=== PATIENT | male | born 1960 | race Caucasian/White ===

== ENCOUNTER 2018-01-25 19:12 | Emergency (ER) | payer OTHER ==
[~2018-01-25] VITALS: Ht 195.6 cm; Wt 141.4 kg
[~2018-01-25 19:12] MED LIST: ADVAIR 100/501 DISK IH; ALLEGRA30 MG PO; ASPIR-TRIN325 M1 PO; Advair HFA 45/21 IH; BENICAR40 MG PO; LIPITOR5 MG PO; PLAVIX75 MG PO
[2018-01-25] MEDS ORDERED: NORCO 5/3251 TABLET PO (22:44)
[2018-01-25 23:11] VITALS: BP 134/89
== END 2018-01-25 23:11 | disposition home or self-care (01) ==
LOC: EME 19:12
PROC: 2Y41X5Z Packing of Nasal Region using Packing Material (ICD-10-PCS; principal; 2018-01-25)
DX: R04.0 Epistaxis (principal); I10 Essential (primary) hypertension; F32.9 Major depressive disorder, single episode, unspecified; J45.909 Unspecified asthma, uncomplicated; Z79.02 Long term (current) use of antithrombotics/antiplatelets
CPT/HCPCS: 99281; 99284; J2270